=== PATIENT | female | born 2000 | race Caucasian/White ===

== ENCOUNTER → 2018-04-21 02:55 | Observation (INO) ==
--- NOTE | 2018-04-21 01:10 | OB/GYN History & Physical ---
Date of Encounter: 04/21/18 Time of Encounter: 01:02 Assessment and Plan (1) 23 weeks gestation of Current visit: Yes Status: Acute Patient admitted for observation Patient c/o SOB and chest discomfort. Discussed with ER attending Dr. Vladimir mcfarland order D dimer and Tropnin Patient to return to ER if SOB or chest pain continues, patient denied these symptoms in ER (2) Obesity affecting in second trimester Current visit: Yes Status: Acute (3) Smoker Current visit: Yes Status: Acute (4) Vaginal discharge during in second trimester Current visit: Yes Status: Acute Speculum exam: negative for blood, vaginosis panel collected (5) Chronic hypertension affecting Current visit: No Status: Acute Serial BPs PIH labs No proteinuria (6) Diabetes in undelivered Current visit: Yes Status: Acute On metformin 1000mg po BID Qualifiers: Diabetes in type: pre-existing, type 1 Qualified Code(s): O24.019 - Pre-existing type 1 diabetes mellitus, in , unspecified trimester History of Present Illness Chief complaint: Vaginal bleeding, MIR[place]ONTES, SOB, chest tightness, shaking, pedal edema HPI: Ms. King is a 18 year old female at 23w4d with an EDC reported by patient of 08/13/2018. Patient presents to OB triage for ER for evaluation of vaginal bleeding. Patient had reported to ER that she has had bleeding for past few day. Patient denies active bleeding upon arrival to labor and delivery. Patient states she passed a large blood clot on Saturday and was seen by her OB at [facility]. Patient reports her reason for coming to the hospital was she had a headache around 1999 with blurred vision. Patient reports the EMS responded to her house and took a BP and got 200/70. Patient states she took tylenol for her headache but did not receive much relief. Patient reports headache to be at the base of her skull. Patient also reports she feels heaviness on her chest like something is sitting on it. She also notice her feet and legs had swelling and "purple spots" on them. Patient reports she had high blood pressure before and was on Labetalol but her OB took her off of it during this . She is a diabetic that takes Metformin 1000mg po BID. Past Med Surg Social Fam HX - Past Medical History Source: patient Medical history: diabetes, hypertension Additional medical history: neuropathy, weak bladder, seasonal allergies Psychiatric history: anxiety, bipolar, depression - Past Surgical History Additional surgical history: ear tubes x 2 - Social History Smoking Status: Current every day smoker Packs per day: 1/2 Alcohol use: none Drug use: none Obstetrical History - Pregnancies : 2 Para: 0 Term: 0 : 0 Ab's: 1 Livin - History/Complications History/Complications: History of 8 week MAB Medications and Allergies Vit/Iron Fumarate/FA [ Tablet] 1 each PO 04/21/18 [History] metFORMIN [Glucophage] 1,000 mg PO BIDWM 04/21/18 [History] 3 Allergy/AdvReac Type Severity Reaction Status Date / Time No Known Allergies Allergy Verified 01/22/17 18:17 Review of System OB - Constitutional Constitutional ROS IM: headache(s) (per HPI), no fever(s) - Cardiovascular Cardiovascular: dyspnea, leg edema, no palpitations, no syncope - Respiratory Respiratory: no cough - Gastrointestinal Gastrointestinal: no abdominal pain, no cramping, no diarrhea, no heartburn, no nausea, no vomiting - Genitourinary Genitourinary: abnormal vaginal bleeding (history of per HPI), dysuria, vaginal discharge, vaginal pruritis, no flank pain, no hematuria, no urinary frequency, no urinary incontinence, no vaginal odor - Integumentary Integumentary: change in pigmentation Exam - Constitutional Constitutional: well developed, well nourished, no acute distress, obese - HEENT HEENT: Normocephaly, Mucus Membranes Moist - Neck Neck exam: full ROM, normal inspection, supple - Lungs Respiratory exam: CTAB - Cardiovascular Cardiovascular exam: RRR, +S1, +S2 - Abdomen Abdomen: Present: bowel sounds normal, gravid, non tender - Extremities Extremities exam: full ROM, normal capillary refill, pedal edema (slight), warm Deep Tendon Reflex Grade: 2+ Normal (no clonus) - Vagina Vagina: Present: normal moisture, discharge (small amount of white discharge, no blood noted on exam. Cervix appears to be closed.) - Cervix Dilation: 0 Effacement: 0 - Uterus Uterus exam: Present: normal size, normal contour - Anus/Rectum Anus/Rectum: Present: normal perianal skin - Comments Comments: FHR 155 bpm moderate variability, appropriate for gestational age. Results All other labs normal. - VTE Reasons for not Prescribing Prophylaxis: Treatment not Indicated - Low risk for VTE
[2018-04-21 01:33] LABS: Basophils % 0.2 %; Eosinophils # 0.1 K/mcL (0.0-0.6); Eosinophils % 0.7 %; Hematocrit 37.1 % (35.3-44.9); Hemoglobin 12.8 g/dL (11.5-15.4); Immature Granulocytes % 0.5 % (0-4); Lymphocytes # 2.8 K/mcL (0.6-4.6); Lymphocytes % 20.7 %; Mean Corpuscular HGB Conc 34.5 g/dL (31.6-35.5); Mean Corpuscular Hemoglobin 31.4 pg (28.0-33.3); Mean Corpuscular Volume 90.9 fL (83.0-100.0); Mean Platelet Volume 11.1 fL (9.4-12.4); Monocytes # 0.8 K/mcL (0.0-1.3); Monocytes % 6.1 %; Neutrophils # 9.6 K/mcL (1.6-8.9); Platelet Count 209 K/mcL (140-400); Red Blood Count 4.08 M/mcL (3.82-4.97); Red Cell Distribution Width 12.6 % (11.5-14.5); Segmented Neutrophils % 71.8 %
[2018-04-21 01:59] LABS: Troponin I < 0.03 ng/mL (< 0.04)
[2018-04-21 02:00] LABS: Alanine Aminotransferase 14 Units/L (7-52); Aspartate Amino Transferase 13 Units/L (13-39); BUN/Creatinine Ratio 15 (6-26); Blood Urea Nitrogen 9 mg/dL (6-20); Glucose 102 mg/dL (70-105); Lactate Dehydrogenase 119 Units/L (140-271); Uric Acid 3.7 mg/dL (2.3-7.6); eGFR For Non-African Americans > 60 (> 60)
[2018-04-21 02:24] LABS: Amphetamine Screen,Urine Negative ng/mL (Cutoff=1000); Barbiturate Screen,Urine Negative ng/mL (Cutoff=200); Benzodiazepines Screen,Urine Negative ng/mL (Cutoff=200); Cannabinoid Screen,Urine Positive ng/mL (Cutoff = 50); Cocaine Screen,Urine Negative ng/mL (Cutoff= 300); Opiate Screen,Urine Negative ng/mL (Cutoff=300); Phencyclidine Screen,Urine Negative ng/mL (Cutoff=25)
[2018-04-21 02:27] LABS: Candida DNA Not Detected (Not Detect); Gardnerella DNA Not Detected (Not Detect); Trichomonas DNA Not Detected (Not Detect)
== END | disposition home or self-care (01) ==
LOC: 1NENULAB
PROVIDERS: ADMIT Advanced Practice Midwife; ATTEND Advanced Practice Midwife

== ENCOUNTER 2020-07-03 22:04 | Observation (INO) ==
[2020-07-04] MEDS ORDERED: Naloxone 0.4 MG/ML INJ IVP PRN (00:53)
[2020-07-04] MEDS ORDERED: Dextrose Gel 15 GM/37.5 ML TUBE PO PRN ×2 (00:55)
[2020-07-04] MEDS ORDERED: D5% in Water 1,000 ML IVC PRN (00:55)
[2020-07-04] MEDS ORDERED: *HR* Dextrose 50 % in Water (Vial) 50 ML VIAL IVP PRN (00:55)
[2020-07-04] MEDS ORDERED: Albuterol 2.5 MG/3 ML NEBULIZER IH PRN (01:25)
[2020-07-04] MEDS: 0.9 % Sodium Chloride 1,000 ML IVC SCH ×3 (01:38→17:44)
[2020-07-04] MEDS ORDERED: Acetaminophen 325 MG TABLET PO PRN (01:47)
[2020-07-04] MEDS: Ondansetron ODT 4 MG TAB.RAPDIS SL PRN ×2 (04:26→17:54)
[2020-07-04] MEDS: Insulin LISPRO 300 UNITS/3 ML VIAL SQ SCH ×3 (05:49→18:59)
[2020-07-04 05:50] LABS: Hematocrit 40.1 % (35.3-44.9); Hemoglobin 13.1 g/dL (11.5-15.4); Mean Corpuscular HGB Conc 32.7 g/dL (31.6-35.5); Mean Corpuscular Hemoglobin 30.8 pg (28.0-33.3); Mean Corpuscular Volume 94.1 fL (83.0-100.0); Mean Platelet Volume 11.1 fL (9.4-12.4); Platelet Count 171 K/mcL (140-400); Red Blood Count 4.26 M/mcL (3.82-4.97); Red Cell Distribution Width 12.2 % (11.5-14.5); White Blood Count 9.3 K/mcL (4.3-11.1)
[2020-07-04 05:53] LABS: INR 1.1; Prothrombin Time 13.2 Seconds (9.4-12.1)
[2020-07-04 06:05] LABS: Alanine Aminotransferase 87 Units/L (7-52); Albumin 3.9 g/dL (3.5-5.7); Albumin/Globulin Ratio 1.4 (1.1-2.2); Alkaline Phosphatase 90 Units/L (34-104); Aspartate Amino Transferase 72 Units/L (13-39); BUN/Creatinine Ratio 13 (6-26); Bilirubin,Direct 0.3 mg/dL (0.0-0.2); Bilirubin,Indirect 0.5 mg/dL (0.0-1.0); Bilirubin,Total 0.8 mg/dL (0.3-1.0); Blood Urea Nitrogen 9 mg/dL (6-20); Calcium 8.7 mg/dL (8.6-10.3); Carbon Dioxide 26 mEq/L (23-29); Chloride 104 mEq/L (98-107); Globulin 2.7 g/dL (2.4-3.5); Glucose 206 mg/dL (70-105); Magnesium 1.7 mg/dL (1.6-2.6); Osmolality,Calculated 291 (280-300); Potassium 3.9 mEq/L (3.5-5.1); Sodium 138 mEq/L (136-145); Total Protein 6.6 g/dL (6.4-8.9); eGFR For African Americans > 60 (> 60); eGFR For Non-African Americans > 60 (> 60)
[2020-07-04] MEDS: Piperacillin/Tazobactam 3.375 GM in 0.9 % Sodium Chloride Mini Bag 100 ML IVPB SCH ×2 (09:59→17:45)
[2020-07-04] MEDS: Nicotine 21 MG PATCH.TD24 TD SCH (14:04)
[2020-07-04] MEDS ORDERED: *HR* Succinylcholine 200 MG/10 ML VIAL IVP ONE (14:47)
[2020-07-04] MEDS ORDERED: *HR* Propofol 200 MG/20 ML VIAL IVP ONE ×2 (14:47→15:44)
[2020-07-04] MEDS ORDERED: Lidocaine -MPF 4% 5 ML AMPUL ONE (14:47)
[2020-07-04] MEDS ORDERED: Lidocaine -MPF 2% 2 ML VIAL ONE (14:47)
[2020-07-04] MEDS ORDERED: Indomethacin 50 MG SUPP.RECT RC ONE (14:54)
[2020-07-04] MEDS ORDERED: *HR* Labetalol 20 MG/4 ML SYRINGE IVP PRN (14:56)
[2020-07-04] MEDS ORDERED: *HR* OxyCODONE Immed Rel 5 MG TABLET PO PRN (14:56)
[2020-07-04] MEDS ORDERED: Ondansetron 4 MG/2 ML VIAL IVP PRN (14:56)
[2020-07-04] MEDS: *HR* HYDROmorphone PF 0.5 MG/0.5 ML SYRINGE IVP PRN ×2 (16:13→16:18)
[2020-07-04] MEDS ORDERED: *HR* Midazolam HCl 2 MG/2 ML VIAL ONE (16:23)
[2020-07-04] MEDS: *HR* HYDROmorphone (PF) 1 MG/ML SYRINGE IVP PRN ×4 (16:26→22:40)
[2020-07-04] MEDS ORDERED: *HR* Midazolam HCl 2 MG/2 ML VIAL IVP PRN (16:28)
[2020-07-04] MEDS ORDERED: *HR* HYDROmorphone (PF) 1 MG/ML SYRINGE IM ONE (16:31)
[2020-07-04] MEDS ORDERED: methocarbamoL 500 MG TABLET PO PRN (17:17)
[2020-07-04] MEDS: Gabapentin 100 MG CAPSULE PO SCH ×2 (17:45→21:17)
[2020-07-04] MEDS ORDERED: Isovue-370 500 ML BOTTLE IVP ONE (18:27)
[2020-07-04] MEDS ORDERED: Ketorolac 15 MG/ML VIAL IVP PRN (18:31)
[2020-07-05] MEDS: Piperacillin/Tazobactam 3.375 GM in 0.9 % Sodium Chloride Mini Bag 100 ML IVPB SCH ×2 (00:58→10:12)
[2020-07-05] MEDS: *HR* HYDROmorphone (PF) 1 MG/ML SYRINGE IVP PRN ×4 (00:58→13:30)
[2020-07-05] MEDS: Insulin LISPRO 300 UNITS/3 ML VIAL SQ SCH ×3 (01:56→13:26)
[2020-07-05 05:56] LABS: Hematocrit 40.5 % (35.3-44.9); Hemoglobin 12.2 g/dL (11.5-15.4); Mean Corpuscular HGB Conc 30.1 g/dL (31.6-35.5); Mean Corpuscular Hemoglobin 29.8 pg (28.0-33.3); Mean Corpuscular Volume 98.8 fL (83.0-100.0); Mean Platelet Volume 11.1 fL (9.4-12.4); Platelet Count 142 K/mcL (140-400); Red Cell Distribution Width 12.2 % (11.5-14.5); White Blood Count 6.9 K/mcL (4.3-11.1)
[2020-07-05 06:16] LABS: BUN/Creatinine Ratio 10 (6-26); Blood Urea Nitrogen 6 mg/dL (6-20); Calcium 7.9 mg/dL (8.6-10.3); Carbon Dioxide 24 mEq/L (23-29); Chloride 106 mEq/L (98-107); Glucose 172 mg/dL (70-105); Osmolality,Calculated 286 (280-300); Potassium 4.2 mEq/L (3.5-5.1); Sodium 137 mEq/L (136-145); eGFR For African Americans > 60 (> 60); eGFR For Non-African Americans > 60 (> 60)
[2020-07-05 07:18] LABS: Amylase 109 Units/L (29-103); Lipase 308 Units/L (11-82)
[2020-07-05] MEDS ORDERED: GI Cocktail 40 ML EACH PO STA (08:52)
[2020-07-05] MEDS ORDERED: (Brexpiprazole [Rexulti] 1 MG) PO SCH (09:00)
[2020-07-05] MEDS ORDERED: hydroCHLOROthiazide 25 MG TABLET PO SCH (09:00)
[2020-07-05] MEDS: Gabapentin 100 MG CAPSULE PO SCH ×2 (10:14→15:06)
[2020-07-05] MEDS: Nicotine 21 MG PATCH.TD24 TD SCH (10:16)
[2020-07-05] MEDS: 0.9 % Sodium Chloride 1,000 ML IVC SCH (10:35)
[2020-07-05] MEDS ORDERED: 0.9 % Sodium Chloride 1,000 ML IVC SCH (11:15)
[2020-07-05 11:22] LABS: Alanine Aminotransferase 77 Units/L (7-52); Albumin 3.5 g/dL (3.5-5.7); Albumin/Globulin Ratio 1.3 (1.1-2.2); Alkaline Phosphatase 81 Units/L (34-104); Aspartate Amino Transferase 48 Units/L (13-39); Bilirubin,Direct 0.2 mg/dL (0.0-0.2); Bilirubin,Indirect 0.4 mg/dL (0.0-1.0); Bilirubin,Total 0.6 mg/dL (0.3-1.0); Globulin 2.6 g/dL (2.4-3.5); Total Protein 6.1 g/dL (6.4-8.9)
[2020-07-05 11:33] VITALS: BP 140/84
[2020-07-05] MEDS ORDERED: Simethicone 80 MG TAB.CHEW PO PRN (12:59)
[2020-07-05] MEDS: Ondansetron ODT 4 MG TAB.RAPDIS SL PRN (15:57)
[2020-07-05] MEDS ORDERED: Budesonide/Formoterol 80/4.5 1 PUFF INH IH SCH (22:00)
== END 2020-07-05 17:22 | disposition home or self-care (01) ==
LOC: 3ANU → SUATTDRO 23:58
PROVIDERS: ADMIT Student in an Organized Health Care Education/Training Program; ATTEND Internal Medicine

== ENCOUNTER 2020-08-09 20:08 | Observation (INO) ==
[2020-08-09] MEDS ORDERED: Isovue-370 500 ML BOTTLE IVP ONE (20:24)
[2020-08-09] MEDS ORDERED: Morphine Sulfate 2 MG/ML SYRINGE IVP ONE (20:26)
[2020-08-09 21:00] LABS: Basophils % 0.3 %; Eosinophils # 0.1 K/mcL (0.0-0.6); Eosinophils % 0.5 %; Hematocrit 41.6 % (35.3-44.9); Hemoglobin 13.9 g/dL (11.5-15.4); Immature Granulocytes % 0.3 % (0-4); Lymphocytes # 1.9 K/mcL (0.6-4.6); Mean Corpuscular HGB Conc 33.4 g/dL (31.6-35.5); Mean Corpuscular Hemoglobin 30.8 pg (28.0-33.3); Monocytes # 0.8 K/mcL (0.0-1.3); Monocytes % 6.6 %; Platelet Count 185 K/mcL (140-400); Red Blood Count 4.52 M/mcL (3.82-4.97); Red Cell Distribution Width 12.4 % (11.5-14.5); Segmented Neutrophils % 76.3 %; White Blood Count 11.7 K/mcL (4.3-11.1)
[2020-08-09 21:09] LABS: Alanine Aminotransferase 37 Units/L (7-52); Albumin 4.2 g/dL (3.5-5.7); Albumin/Globulin Ratio 1.4 (1.1-2.2); Alkaline Phosphatase 79 Units/L (34-104); Aspartate Amino Transferase 28 Units/L (13-39); BUN/Creatinine Ratio 8 (6-26); Bilirubin,Direct 0.2 mg/dL (0.0-0.2); Bilirubin,Indirect 0.5 mg/dL (0.0-1.0); Bilirubin,Total 0.7 mg/dL (0.3-1.0); Blood Urea Nitrogen 6 mg/dL (6-20); Calcium 8.6 mg/dL (8.6-10.3); Carbon Dioxide 22 mEq/L (23-29); Chloride 103 mEq/L (98-107); Glucose 230 mg/dL (70-105); Lipase 40 Units/L (11-82); Osmolality,Calculated 289 (280-300); Potassium 3.4 mEq/L (3.5-5.1); Sodium 137 mEq/L (136-145); Total Protein 7.2 g/dL (6.4-8.9); eGFR For African Americans > 60 (> 60); eGFR For Non-African Americans > 60 (> 60)
[2020-08-09 22:39] LABS: Bilirubin,Urine Negative (Negative); Blood,Urine Negative (Negative); Clarity,Urine Clear (Clear); Color,Urine Light-Yellow (Yellow); Glucose,Urine (UA) 200 mg/dL (Normal); Ketones,Urine Negative (Negative); Leukocyte Esterase,Urine Negative (Negative); Mucus,Urine Few per lpf (None-Few); Nitrite,Urine Negative (Negative); PH,Urine 6.5 pH Units (5.0-8.0); Protein,Urine 30 mg/dL (Neg-Trace); RBC,Urine 0-3 per hpf (0-3); Specific Gravity,Urine > 1.030 (1.010-1.025); Squamous Epithelial Cell,Urine Few per hpf (None-Few); Urobilinogen,Urine Normal (Normal); WBC,Urine 0-3 per hpf (0-3)
[2020-08-10] MEDS ORDERED: Piperacillin/Tazobactam 3.375 GM in 0.9 % Sodium Chloride Mini Bag 100 ML IVPB ONE ×2 (00:19→01:00)
[2020-08-10] MEDS ORDERED: Naloxone 0.4 MG/ML INJ IVP PRN (00:59)
[2020-08-10] MEDS ORDERED: Piperacillin/Tazobactam 3.375 GM VIAL ONE (01:04)
[2020-08-10] MEDS ORDERED: Chloraseptic Spray 177 ML BOTTLE MM PRN (02:25)
[2020-08-10] MEDS ORDERED: Dextrose Gel 15 GM/37.5 ML TUBE PO PRN ×2 (02:42)
[2020-08-10] MEDS ORDERED: D5% in Water 1,000 ML IVC PRN (02:42)
[2020-08-10] MEDS ORDERED: *HR* Dextrose 50 % in Water (Vial) 50 ML VIAL IVP PRN (02:42)
[2020-08-10] MEDS: Vancomycin 1,750 MG/517.5 ML IV.SOLN IVPB SCH ×2 (03:15→16:58)
[2020-08-10] MEDS: 0.9 % Sodium Chloride 1,000 ML IVC SCH (03:15)
[2020-08-10 03:30] LABS: Basophils % 0.3 %; Eosinophils # 0.1 K/mcL (0.0-0.6); Eosinophils % 0.5 %; Hemoglobin 13.3 g/dL (11.5-15.4); Immature Granulocytes % 0.3 % (0-4); Lymphocytes # 1.8 K/mcL (0.6-4.6); Lymphocytes % 16.5 %; Mean Corpuscular HGB Conc 33.3 g/dL (31.6-35.5); Mean Corpuscular Hemoglobin 30.9 pg (28.0-33.3); Mean Platelet Volume 11.2 fL (9.4-12.4); Monocytes % 9.8 %; Neutrophils # 7.8 K/mcL (1.6-8.9); Platelet Count 179 K/mcL (140-400); Red Cell Distribution Width 12.6 % (11.5-14.5); Segmented Neutrophils % 72.6 %; White Blood Count 10.7 K/mcL (4.3-11.1)
[2020-08-10] MEDS ORDERED: Ondansetron ODT 4 MG TAB.RAPDIS SL PRN (03:36)
[2020-08-10 03:46] LABS: BUN/Creatinine Ratio 8 (6-26); Blood Urea Nitrogen 6 mg/dL (6-20); Calcium 8.4 mg/dL (8.6-10.3); Carbon Dioxide 24 mEq/L (23-29); Chloride 103 mEq/L (98-107); Glucose 196 mg/dL (70-105); INR 1.2; Magnesium 1.5 mg/dL (1.6-2.6); Osmolality,Calculated 287 (280-300); Phosphorous 2.9 mg/dL (2.7-4.5); Potassium 3.6 mEq/L (3.5-5.1); Prothrombin Time 13.3 Seconds (9.4-12.1); Sodium 137 mEq/L (136-145); eGFR For African Americans > 60 (> 60); eGFR For Non-African Americans > 60 (> 60)
[2020-08-10] MEDS: Insulin LISPRO 300 UNITS/3 ML VIAL SQ SCH ×3 (05:49→18:02)
[2020-08-10] MEDS: *HR* Heparin 5,000 UNIT/ML VIAL SQ SCH ×2 (05:51→18:10)
[2020-08-10] MEDS: Budesonide/Formoterol 80/4.5 1 PUFF INH IH SCH ×2 (07:32→20:22)
[2020-08-10] MEDS ORDERED: Acetaminophen 325 MG TABLET PO PRN (07:40)
[2020-08-10] MEDS: Nicotine 21 MG PATCH.TD24 TD SCH (08:30)
[2020-08-10] MEDS: Piperacillin/Tazobactam 3.375 GM in 0.9 % Sodium Chloride Mini Bag 100 ML IVPB SCH ×3 (08:31→23:59)
[2020-08-10] MEDS: (Brexpiprazole [Rexulti] 1 MG) PO SCH (08:33)
[2020-08-10] MEDS: Gabapentin 100 MG CAPSULE PO SCH ×3 (08:33→21:17)
[2020-08-10] MEDS: hydroCHLOROthiazide 25 MG TABLET PO SCH (08:33)
[2020-08-10] MEDS ORDERED: *HR* FentaNYL (PF) 100 MCG/2 ML VIAL IVP ONE ×2 (09:59→10:19)
[2020-08-10] MEDS ORDERED: *HR* Midazolam HCl 2 MG/2 ML VIAL IVP ONE ×2 (09:59→10:20)
[2020-08-10] MEDS ORDERED: *HR* Midazolam HCl 2 MG/2 ML VIAL ONE ×2 (10:01→14:57)
[2020-08-10] MEDS ORDERED: *HR* FentaNYL (PF) 100 MCG/2 ML VIAL ONE ×2 (10:01→14:28)
[2020-08-10] MEDS ORDERED: 0.9 % Sodium Chloride 500 ML ONE (10:02)
[2020-08-10] MEDS ORDERED: Scopolamine Patch 1.5 MG PATCH.TD72 TD ONE (14:09)
[2020-08-10] MEDS ORDERED: Scopolamine Patch 1.5 MG PATCH.TD72 ONE (14:10)
[2020-08-10] MEDS ORDERED: Lidocaine -MPF 4% 5 ML AMPUL ONE (14:28)
[2020-08-10] MEDS ORDERED: *HR* Propofol 200 MG/20 ML VIAL IVP ONE ×2 (14:28→15:05)
[2020-08-10] MEDS ORDERED: Ondansetron 4 MG/2 ML VIAL ONE (14:28)
[2020-08-10] MEDS ORDERED: *HR* Succinylcholine 200 MG/10 ML VIAL IVP ONE (14:28)
[2020-08-10] MEDS ORDERED: Lidocaine -MPF 2% 2 ML VIAL ONE (14:28)
[2020-08-10] MEDS ORDERED: Dexamethasone 4 MG/ML VIAL ONE ×2 (14:28→14:53)
[2020-08-10] MEDS ORDERED: Insulin LISPRO 300 UNITS/3 ML VIAL SQ SCH (23:45)
[2020-08-11 03:15] LABS: Basophils % 0.1 %; Hematocrit 38.4 % (35.3-44.9); Hemoglobin 12.8 g/dL (11.5-15.4); Immature Granulocytes % 0.5 % (0-4); Lymphocytes # 0.6 K/mcL (0.6-4.6); Lymphocytes % 6.1 %; Mean Corpuscular HGB Conc 33.3 g/dL (31.6-35.5); Mean Corpuscular Hemoglobin 30.6 pg (28.0-33.3); Mean Corpuscular Volume 91.9 fL (83.0-100.0); Monocytes # 0.4 K/mcL (0.0-1.3); Monocytes % 3.6 %; Neutrophils # 8.8 K/mcL (1.6-8.9); Platelet Count 165 K/mcL (140-400); Red Blood Count 4.18 M/mcL (3.82-4.97); Red Cell Distribution Width 12.1 % (11.5-14.5); Segmented Neutrophils % 89.7 %; White Blood Count 9.9 K/mcL (4.3-11.1)
[2020-08-11 03:33] LABS: BUN/Creatinine Ratio 16 (6-26); Blood Urea Nitrogen 11 mg/dL (6-20); Calcium 8.5 mg/dL (8.6-10.3); Carbon Dioxide 21 mEq/L (23-29); Chloride 103 mEq/L (98-107); Glucose 328 mg/dL (70-105); Osmolality,Calculated 290 (280-300); Potassium 4.3 mEq/L (3.5-5.1); Sodium 134 mEq/L (136-145); eGFR For African Americans > 60 (> 60); eGFR For Non-African Americans > 60 (> 60)
[2020-08-11] MEDS: Vancomycin 1,750 MG/517.5 ML IV.SOLN IVPB SCH (03:55)
[2020-08-11] MEDS: 0.9 % Sodium Chloride 1,000 ML IVC SCH ×4 (05:37→15:21)
[2020-08-11] MEDS: *HR* Heparin 5,000 UNIT/ML VIAL SQ SCH (05:38)
[2020-08-11] MEDS: Nicotine 21 MG PATCH.TD24 TD SCH (07:35)
[2020-08-11] MEDS: hydroCHLOROthiazide 25 MG TABLET PO SCH (07:36)
[2020-08-11] MEDS: Piperacillin/Tazobactam 3.375 GM in 0.9 % Sodium Chloride Mini Bag 100 ML IVPB SCH (07:36)
[2020-08-11] MEDS: Gabapentin 100 MG CAPSULE PO SCH ×2 (07:36→15:20)
[2020-08-11] MEDS: Budesonide/Formoterol 80/4.5 1 PUFF INH IH SCH (08:06)
[2020-08-11] MEDS: Insulin LISPRO 300 UNITS/3 ML VIAL SQ SCH ×2 (08:31→12:22)
[2020-08-11 12:17] VITALS: BP 148/89
[2020-08-11] MEDS: (Brexpiprazole [Rexulti] 1 MG) PO SCH (12:57)
== END 2020-08-11 15:27 | disposition home or self-care (01) ==
LOC: 3ANU 20:08 → EMEROOARM 20:08 → SUATTDRO 08-10 01:24 → 3ANU 08-10 01:45
PROVIDERS: ADMIT Student in an Organized Health Care Education/Training Program; ATTEND Student in an Organized Health Care Education/Training Program
PROC: IRDRAIN (2020-08-10 11:00)